=== PATIENT | male | born 1940 | race Caucasian/White ===

== ENCOUNTER 2019-03-11 19:52 | Emergency (ER) | payer MEDICARE ==
[~2019-03-11] VITALS: Ht 182.9 cm; Wt 100.0 kg
[2019-03-11] MEDS ORDERED: TRELEGY ELLIPTA1 AER IN (20:25)
[2019-03-11] MEDS ORDERED: CARVEDILOL6.25 MG PO (20:25)
[2019-03-11] MEDS ORDERED: LEVOTHYROXIN75 MCG PO (20:25)
[2019-03-11] MEDS ORDERED: COQ-1030 MG PO (20:26)
[2019-03-11 20:55] LABS: URINE BILIRUBIN - DIPSTICK NEGATIVE (NEGATIVE); URINE BLOOD DIPSTICK NEGATIVE (NEGATIVE); URINE COLOR YELLOW; URINE GLUCOSE - DIPSTICK NEGATIVE (NEGATIVE); URINE KETONE NEGATIVE (NEGATIVE); URINE LEUK ESTERASE NEGATIVE (NEGATIVE); URINE NITRITE - DIPSTICK NEGATIVE (Negative); URINE PROTEIN - DIPSTICK NEGATIVE (NEG-TRACE)
[2019-03-11 21:00] LABS: HEMATOCRIT 46.9 % (39.0-50.0); HEMOGLOBIN 14.8 g/dl (14.0-18.0); IMMATURE GRANULOCYTES 0.8 % (0.0-5.0); MEAN CELL VOLUME 101.1 fL CALC (80.0-100.0); MEAN CORPUSCULAR HGB 31.9 pG CALC (26.0-32.0); MEAN CORPUSCULAR HGB CONC 31.6 g/L CALC (32.0-36.0); NEUT# 7.58 thou/uL (1.82-7.42); RED BLOOD COUNT 4.64 mill/uL (4.70-6.10); RED CELL DISTRI WIDTH 13.7 % (11.5-15.5)
[2019-03-11] MEDS ORDERED: ELIQUIS5 MG PO (21:06)
[2019-03-11] MEDS ORDERED: GABAPENTIN100 MG PO (21:08)
[2019-03-11 21:11] LABS: ALBUMIN 3.9 g/dL (3.2-5.0); ALKALINE PHOSPHATASE 73 u/l (38-126); ANION GAP 13 (6-22 (CALC)); BILIRUBIN, TOTAL 0.8 mg/dL (0.0-1.4); BUN 17 mg/dL (8-23); BUN/CREATININE RATIO 20 (12-20 (CALC)); CARBON DIOXIDE 26 mmol/l (22-30); CHLORIDE 104 mmol/l (95-108); CREATININE 0.9 mg/dL (0.7-1.3); GFR > 60 ML/MIN (>=60 (CALC)); GFR FOR AFR.AMER. > 60 ML/MIN (>=60 (CALC)); POTASSIUM 4.4 mmol/l (3.5-5.1); SODIUM 138 mmol/l (137-146); TOTAL PROTEIN 6.8 g/dL (6.3-8.2)
[2019-03-11 21:12] LABS: SGOT/AST 36 u/l (19-48)
[2019-03-11 21:23] LABS: MYOGLOBIN 50 ng/mL (0 - 121)
[2019-03-11] MEDS ORDERED: ZPAK PO (23:08)
[2019-03-11 23:15] VITALS: BP 137/81
== END 2019-03-11 23:18 | disposition home or self-care (01) ==
LOC: ED 19:52
PROVIDERS: Emergency Medicine
DX: J18.9 Pneumonia, unspecified organism (principal); R10.31 Right lower quadrant pain
CPT/HCPCS: Q9967

== ENCOUNTER 2020-04-22 14:46 | Emergency (ER) | payer MEDICARE ==
[~2020-04-22 14:46] MED LIST: CARVEDILOL6.25 MG PO; COQ-1030 MG PO; ELIQUIS5 MG PO; GABAPENTIN100 MG PO; LEVOTHYROXIN75 MCG PO; TRELEGY ELLIPTA1 AER IN; ZPAK PO
[2020-04-22 15:34] LABS: IMMATURE GRANULOCYTES 0.9 % (0.0-5.0); MEAN CELL VOLUME 98.9 fL CALC (80.0-100.0); MEAN CORPUSCULAR HGB 30.6 pG CALC (26.0-32.0); NEUT# 9.71 thou/uL (1.82-7.42); RED BLOOD COUNT 3.69 mill/uL (4.70-6.10); RED CELL DISTRI WIDTH 14.1 % (11.5-15.5)
[2020-04-22] MEDS ORDERED: CARVEDILOL6.25 MG PO (15:36)
[2020-04-22] MEDS ORDERED: ELIQUIS5 MG PO (15:36)
[2020-04-22] MEDS ORDERED: PROTONIX40 M2 PO (15:36)
[2020-04-22] MEDS ORDERED: PREDNISONE10 MG PO (15:37)
[2020-04-22] MEDS ORDERED: ZITHROMAX Z-PA250 MG PO (15:37)
[2020-04-22] MEDS ORDERED: NEXIUM20 M1 PO (15:38)
[2020-04-22] MEDS ORDERED: STOOL SOFTENER100 MG PO (15:39)
[2020-04-22] MEDS ORDERED: CYCLOBENZAPR5 MG PO (15:39)
[2020-04-22] MEDS ORDERED: VITAMIN D PO (15:39)
[2020-04-22 15:45] LABS: HEMATOCRIT 36.5 % (39.0-50.0); HEMOGLOBIN 11.3 g/dl (14.0-18.0)
[2020-04-22] MEDS ORDERED: OXYCONTIN10 MG PO (15:46)
[2020-04-22] MEDS ORDERED: PROMETHAZINE12.5 MG PO (15:46)
[2020-04-22] MEDS ORDERED: LORTAB 1010 MG PO (15:47)
[2020-04-22] MEDS ORDERED: PROAIR HFA108 MCG/AC IN (15:48)
[2020-04-22 15:54] LABS: URINE BILIRUBIN - DIPSTICK NEGATIVE (NEGATIVE); URINE BLOOD DIPSTICK NEGATIVE (NEGATIVE); URINE COLOR YELLOW; URINE GLUCOSE - DIPSTICK NEGATIVE (NEGATIVE); URINE KETONE NEGATIVE (NEGATIVE); URINE LEUK ESTERASE NEGATIVE (NEGATIVE); URINE NITRITE - DIPSTICK NEGATIVE (Negative); URINE PH 5.5 (4.5-8.0); URINE PROTEIN - DIPSTICK NEGATIVE (NEG-TRACE)
[2020-04-22 16:12] LABS: BUN 13 mg/dL (8-23); BUN/CREATININE RATIO 18 (12-20 (CALC)); CHLORIDE 97 mmol/l (95-108); CREATININE 0.7 mg/dL (0.7-1.3); GFR > 60 ML/MIN (>=60 (CALC)); GFR FOR AFR.AMER. > 60 ML/MIN (>=60 (CALC)); LIPASE < 10 u/l (23-300); POTASSIUM 4.4 mmol/l (3.5-5.1); SGOT/AST 44 u/l (19-48); SODIUM 134 mmol/l (137-146); TOTAL PROTEIN 6.5 g/dL (6.3-8.2)
[2020-04-22 16:15] LABS: ALKALINE PHOSPHATASE 172 u/l (38-126); ANION GAP 7 (6-22 (CALC)); BILIRUBIN, TOTAL 1.3 mg/dL (0.0-1.4); CARBON DIOXIDE 34 mmol/l (22-30)
[2020-04-22 19:18] VITALS: BP 133/75
== END 2020-04-22 19:18 | disposition short-term general hospital (02) ==
LOC: ED 14:46
PROVIDERS: Family Medicine
DX: J18.9 Pneumonia, unspecified organism (principal); R30.0 Dysuria; R31.9 Hematuria, unspecified; Z85.118 Personal history of other malignant neoplasm of bronchus and lung; Z20.828 Contact with and (suspected) exposure to other viral communicable diseases
CPT/HCPCS: Q9967